=== PATIENT | female | born 1965 | race Caucasian/White ===

== ENCOUNTER 2017-04-14 17:32 | Emergency (ER) | payer SELFPAY ==
[~2017-04-14] VITALS: Ht 152.4 cm; Wt 62.0 kg
[2017-04-14] MEDS ORDERED: SODIUM CHLORIDE 0.9% 1,000 ML IV ONE (19:42)
[2017-04-14] MEDS ORDERED: FAMOTIDINE 20MG/2ML VIAL IV STA (19:42)
[2017-04-14] MEDS ORDERED: ONDANSETRON HCL 4MG/2ML VIAL IV STA (19:42)
[2017-04-14 20:06] LABS: BASOPHILS % 0.3 % (0.0-2.0); EOSINOPHILS % 0.3 % (0.0-5.0); HEMATOCRIT. 39.8 % (36.0-48.0); HEMOGLOBIN. 13.6 g/dL (12.0-16.0); LYMPHOCYTES % 14.9 % (20.0-50.0); MEAN CORPUSCULAR HEMOGLOBIN 30.4 pg (28.0-32.0); MEAN CORPUSCULAR VOLUME 88.8 fL (81.0-99.0); MEAN PLATELET VOLUME 8.4 fl (7.4-10.4); MONOCYTES % 8.4 % (2.0-8.0); NEUTROPHILS % 76.1 % (40.0-76.0); PLATELET 168 x1000/uL (130-400); RED BLOOD CELL COUNT 4.48 mill/uL (4.2-5.4); RED CELL DISTRIBUTION WIDTH 12.8 % (11.6-14.6)
[2017-04-14 20:14] LABS: PROTHROMBIN TIME 10.2 sec (9.4-11.6)
[2017-04-14 20:21] LABS: CARBON DIOXIDE 28 mEq/L (21-32); CHLORIDE 101 mEq/L (98-107)
[2017-04-14 20:22] LABS: TROPONIN I < 0.02 ng/mL (0.00-0.04)
[2017-04-14 21:23] LABS: CLARITY URINE CLEAR (CLEAR); COLOR URINE YELLOW (YELLOW); GLUCOSE URINE NEGATIVE (NEGATIVE); KETONES URINE NEGATIVE (NEGATIVE); LEUKOCYTE ESTERASE URINE 1+ (NEGATIVE); NITRITE URINE NEGATIVE (NEGATIVE); OCCULT BLOOD URINE NEGATIVE (NEGATIVE); PH URINE 6.5 (4.5-8.0); PROTEIN URINE NEGATIVE (NEGATIVE); SPECIFIC GRAVITY URINE 1.006 (1.005-1.030); UROBILINOGEN URINE 0.2 E.U./dL (0.2-1.0)
[2017-04-14 22:45] VITALS: BP 118/62
== END 2017-04-14 22:50 | disposition home or self-care (01) ==
LOC: ER 17:32
DX: R10.13 Epigastric pain (principal); K29.70 Gastritis, unspecified, without bleeding; M79.601 Pain in right arm; M79.602 Pain in left arm; Z88.0 Allergy status to penicillin
CPT/HCPCS: 36415; 71010; 76705; 80053; 81001; 83690; 84484; 85025; 85610; 93005; 96361; 96374; 96375; 99285; J2405; J3490; J7030

== ENCOUNTER 2024-05-14 22:16 | Emergency (ER) | payer OTHER ==
[~2024-05-14] VITALS: Ht 160 cm; Wt 64.0 kg
[2024-05-14 22:24] VITALS: O2SAT 100
[2024-05-14 23:04] LABS: BASOPHILS % 0.4 % (0.0-2.0); EOSINOPHILS % 0.4 % (0.0-5.0); HEMATOCRIT. 43.5 % (36.0-48.0); LYMPHOCYTES % 28.9 % (20.0-50.0); MEAN CORPUSCULAR HEMOGLOBIN 29.1 pg (28.0-32.0); MEAN CORPUSCULAR HGB CONC 32.2 g/dL (31.0-37.0); MEAN CORPUSCULAR VOLUME 90.4 fL (81.0-99.0); MEAN PLATELET VOLUME 8.4 fl (7.4-10.4); MONOCYTES % 8.1 % (2.0-8.0); NEUTROPHILS % 62.2 % (40.0-76.0); PLATELET 225 x1000/uL (130-400); RED BLOOD CELL COUNT 4.81 mill/uL (4.2-5.4); WHITE BLOOD COUNT 11.2 x1000/uL (4.5-11.0)
[2024-05-14] MEDS: KETOROLAC 30MG/ML VIAL IV STA (23:04)
[2024-05-14] MEDS: SODIUM CHLORIDE 0.9% 1,000 ML IV ONE (23:05)
[2024-05-14] MEDS: ONDANSETRON HCL 4MG/2ML INJ IV STA (23:05)
[2024-05-14 23:08] LABS: CARBON DIOXIDE 24 mEq/L (21-32); CHLORIDE 102 mEq/L (98-107); POTASSIUM 3.7 mEq/L (3.5-5.1); SODIUM 137 mEq/L (136-145)
[2024-05-14 23:09] LABS: CALCIUM 9.9 mg/dL (8.7-10.4)
[2024-05-14 23:13] LABS: CREATININE 0.9 mg/dL (0.6-1.0)
[2024-05-14 23:14] LABS: GLUCOSE 122 mg/dL (70-105); UREA NITROGEN BLOOD 23 mg/dL (9-23)
[2024-05-14 23:15] LABS: ALANINE AMINOTRANSFERASE 16 IU/L (10-49); ALBUMIN 4.8 g/dL (3.2-4.8); ASPARTATE AMINOTRANSFERASE 23 IU/L (<34)
[2024-05-14 23:16] LABS: BILIRUBIN DIRECT 0.1 mg/dL (<=3.0); BILIRUBIN TOTAL 0.7 mg/dL (0.1-1.0); PROTEIN TOTAL 8.1 g/dL (6.0-8.3)
[2024-05-15] MEDS ORDERED: ACET-2708 MT (01:21)
[2024-05-15] MEDS ORDERED: DICY-18 MT (01:21)
[2024-05-15] MEDS ORDERED: ONDA4TAB50 MT (01:24)
[2024-05-15 01:53] VITALS: BP 136/65; PULSE 49; RESP 18; TEMP 36.50292; O2SAT 100
[2024-05-15] MEDS ORDERED: IOHEXOL-300 100 ML BOTTLE ONE (04:47)
== END 2024-05-15 01:56 | disposition home or self-care (01) ==
LOC: ER 22:16
DX: R10.12 Left upper quadrant pain (principal); R10.32 Left lower quadrant pain; I10 Essential (primary) hypertension; F41.9 Anxiety disorder, unspecified; Z90.49 Acquired absence of other specified parts of digestive tract; Z88.5 Allergy status to narcotic agent; Z88.0 Allergy status to penicillin
CPT/HCPCS: 99285; 96374; 96361; 96375; 80076; 80048; 83690; 85025; 36415; 74177; J1885; J2405; J7030; Q9967

== ENCOUNTER → 2024-11-10 | Day surgery (SDC) | payer MEDICAID ==
[~2024-11-10] VITALS: Ht 152.4 cm; Wt 63.5 kg
[~2024-11-10] MED LIST: ACET-2708 MT; ACETYLCHOLINE CHLORIDE INTRAOCULAR SOLUTION 1:100 ELECTROLYTE DILUENT IO ONE; DEXAMETHASONE 4MG/ML 1ML VIAL IV PRN; DICY-18 MT; FENTANYL CITRATE/PF 50MCG/ML 2ML VIAL ONE; GABA-1180 PO; GLYCOPYRROLATE 0.2 MG/ML 2ML VIAL IV PRN; HYDRALAZINE 20MG/ML VIAL IV PRN; HYDROMORPHONE HCL/PF 1MG/ML INJ IV PRN; LABETALOL 5MG/ML 4ML INJ IV PRN; LACTATED RINGERS 1,000 ML IV SCH; LEUC5TAB PO; METH2.5T PO; ONDA4TAB50 MT; ONDANSETRON HCL 4MG/2ML INJ IV PRN; PARO-41 PO; PROPOFOL 200MG/20ML VIAL IV ONE; TRIAMCINOLONE ACETONIDE 40MG/ML 1ML VIAL ONE
== END | disposition home or self-care (01) ==
LOC: OR 10:14
PROVIDERS: ATTEND Ophthalmology
DX: H40.89 Other specified glaucoma (principal); K21.9 Gastro-esophageal reflux disease without esophagitis; Z90.49 Acquired absence of other specified parts of digestive tract; Z98.890 Other specified postprocedural states; Z79.899 Other long term (current) drug therapy; Z88.0 Allergy status to penicillin; Z88.5 Allergy status to narcotic agent; Z88.8 Allergy status to other drugs, medicaments and biological substances
CPT/HCPCS: 66170; J3010; J3490 ×2; J2003; J2704; J3301